=== PATIENT | female | born 1995 | race Two or more races ===

== ENCOUNTER 2023-05-26 08:17 | Emergency (ER) | payer OTHER ==
[~2023-05-26] VITALS: Ht 162.6 cm; Wt 66.6 kg
[2023-05-26 09:01] LABS: BASO % 0.5 % (0.0-1.0); EOS # 0.1 10^3/uL (0.0-0.5); EOS % 1.4 % (0.0-3.0); HEMATOCRIT 41.1 % (36.0-47.0); HEMOGLOBIN 13.6 g/dl (12.0-15.5); LYMPH # 2.5 10^3/uL (1.5-5.0); LYMPH % 33.4 % (24.0-44.0); MEAN CORPUSCULAR HEMOGLOBIN 30.4 pg (27.0-33.0); MEAN CORPUSCULAR HGB CONC 33.1 g/dl (32.0-36.5); MEAN CORPUSCULAR VOLUME 91.7 fl (80.0-96.0); MONO # 0.6 10^3/uL (0.0-0.8); NEUTROPHILS # 4.2 10^3/uL (1.5-8.5); NEUTROPHILS % 56.4 % (36.0-66.0); PLATELET COUNT, AUTOMATED 327 10^3/uL (150-450); RED BLOOD COUNT 4.48 10^6/uL (4.00-5.40); WHITE BLOOD COUNT 7.4 10^3/uL (4.0-10.0)
[2023-05-26] MEDS ORDERED: FLUC150T9 PO (09:42)
[2023-05-26] MEDS ORDERED: NITR-67 PO (09:42)
[2023-05-26 09:52] VITALS: BP 95/59; TEMP 98.7; O2SAT 100
== END 2023-05-26 09:54 | disposition home or self-care (01) ==
LOC: M ED 08:17
DX: N39.0 Urinary tract infection, site not specified (principal)

== ENCOUNTER 2023-11-23 18:15 | Emergency (ER) | payer OTHER ==
[~2023-11-23] VITALS: Ht 162.6 cm; Wt 69.5 kg
[2023-11-23 18:15] VITALS: BP 136/72; TEMP 97.6; O2SAT 98
[~2023-11-23 18:15] MED LIST: FLUC150T9 PO; NITR-67 PO
[2023-11-23 19:04] LABS: APPEARANCE, URINE CLEAR (CLEAR); BACTERIA, URINE AUTO NEGATIVE (NEGATIVE); BILIRUBIN, URINE AUTO NEGATIVE (NEGATIVE); BLOOD, URINE BLOOD 2+ (NEGATIVE); COLOR, URINE AMBER (YELLOW); GLUCOSE, URINE (UA) AUTO NEGATIVE (NEGATIVE); KETONE, URINE AUTO NEGATIVE (NEGATIVE); LEUKOCYTE ESTERASE, URINE AUTO 2+ (NEGATIVE); NITRITE, URINE AUTO POSITIVE (NEGATIVE); PROTEIN, URINE AUTO NEGATIVE (NEGATIVE); RBC, URINE AUTO 0 /HPF (0-3); SPECIFIC GRAVITY URINE AUTO 1.001 (1.002-1.035); SQUAMOUS EPITHELIAL CELL UR AU 0 /HPF (0-6); WBC, URINE AUTO 7 /HPF (0-3)
[2023-11-23 19:12] LABS: URINE PREG TEST NEGATIVE (NEGATIVE)
[2023-11-23] MEDS ORDERED: NITR-67 PO (19:28)
== END 2023-11-23 19:47 | disposition home or self-care (01) ==
LOC: M ED 18:15
DX: N30.00 Acute cystitis without hematuria (principal); Z79.899 Other long term (current) drug therapy